=== PATIENT | male | born 1960 | race Caucasian/White ===

== ENCOUNTER 2022-04-15 15:37 | Emergency (ER) | payer BC, SELFPAY ==
[~2022-04-15] VITALS: Ht 177.8 cm; Wt 83.9 kg
[~2022-04-15 15:37] MED LIST: HYDR100T27 PO; LABE100T7 PO; LEVO5TAB29 PO; LOSA100T58 PO; PANT40TA55 PO; VERA240C3 PO
[2022-04-15 16:28] LABS: APPEARANCE,URINE CLEAR (CLEAR); BILIRUBIN,URINE NEGATIVE (NEGATIVE); COLOR,URINE LIGHT-YELLOW (YELLOW); GLUCOSE, URINE (UA) NEGATIVE (NEGATIVE); KETONES,URINE 5 mg/dL (NEGATIVE); LEUKOCYTE ESTERASE ,URINE NEGATIVE Leu/uL (NEGATIVE); NITRATE,URINE NEGATIVE (NEGATIVE); OCCULT BLOOD,URINE NEGATIVE (NEGATIVE); PH,URINE 6.5 (5.0-8.0); PROTEIN,URINE NEGATIVE (NEGATIVE); UROBILINOGEN,URINE 0.2 mg/dL (0.2-1.0)
[2022-04-15 16:48] LABS: BASOPHILS % (AUTO) 0.6 % (0.0-5.0); LYMPHOCYTES % (AUTO) 12.5 % (21.0-51.0); MEAN CORPUSCULAR HEMOGLOBIN 30.2 pg (27.0-33.0); MEAN CORPUSCULAR HGB CONC 34.3 g/dL (32.0-36.0); MEAN CORPUSCULAR VOLUME 88.3 fL (79-99); MONOCYTES % (AUTO) 10.7 % (3.0-13.0); NEUTROPHILS % (AUTO) 75.6 % (40.0-77.0); PLATELET COUNT (AUTO) 111 K/uL (130-400); RED BLOOD CELL COUNT(AUTO) 4.53 MIL/uL (4.50-6.20); RED CELL DISTRIBUTION WIDTH 12.9 % (11.0-15.5); WHITE BLOOD COUNT (AUTO) 5.4 K/uL (4.8-10.8)
[2022-04-15 17:01] LABS: CREATININE 1.4 mg/dL (0.5-1.5); POTASSIUM 3.2 mmol/L (3.5-5.1)
[2022-04-15 17:12] LABS: ALBUMIN 4.2 g/dL (3.5-5.0); TOTAL PROTEIN, SERUM 7.2 g/dL (6.0-8.3)
[2022-04-15 17:12] LABS: RBC,URINE 0-1 /HPF (0-1); WBC,URINE 0-1 /HPF (0-1)
[2022-04-15] MEDS ORDERED: IOHEXOL 350 MG/ML 100ML INFUS..BTL IV ONE (18:04)
[2022-04-15] MEDS ORDERED: TAMSULOSIN HCL 0.4 MG CAP.ER.24H PO STA (18:38)
[2022-04-15] MEDS ORDERED: KETO10TA2 PO (18:51)
[2022-04-15] MEDS ORDERED: TAMS-1 PO (18:51)
[2022-04-15] MEDS ORDERED: KETOROLAC 30MG VIAL (30MG/ML) IVP ONE (19:00)
[2022-04-15] MEDS ORDERED: 0.9%NACL 1000ML 1,000 ML IV ONE (19:00)
[2022-04-15 19:21] VITALS: BP 161/72
== END 2022-04-15 19:43 | disposition home or self-care (01) ==
LOC: EDH 15:37
DX: N20.1 Calculus of ureter (principal); K59.00 Constipation, unspecified; E11.9 Type 2 diabetes mellitus without complications; K21.9 Gastro-esophageal reflux disease without esophagitis; I10 Essential (primary) hypertension; Z88.5 Allergy status to narcotic agent
CPT/HCPCS: 99284; 74177; 96374; 80053; 85025; 81001; 36415; J7030; J1885; Q9967

== ENCOUNTER 2024-02-22 12:56 | Emergency (ER) | payer BC ==
[~2024-02-22] VITALS: Ht 177.8 cm; Wt 83.9 kg
[~2024-02-22 12:56] MED LIST changes: +HYDR100T15 PO; -HYDR100T27 PO; +KETO10TA2 PO; -LOSA100T58 PO; +LOSA100T59 PO; +TAMS-1 PO
[2024-02-22 14:02] LABS: BASOPHILS # (AUTO) 0.04 K/uL (0.00-0.20); BASOPHILS % (AUTO) 1.2 % (0.0-5.0); EOSINOPHILS # (AUTO) 0.07 K/uL (0.00-0.70); HEMATOCRIT 39.8 % (42-54); IMMATURE GRANULOCYTE ABSOLUTE 0.02 K/uL (0-1); LYMPHOCYTES # (AUTO) 0.9 K/uL (1.0-4.8); LYMPHOCYTES % (AUTO) 24.7 % (21.0-51.0); MEAN CORPUSCULAR HEMOGLOBIN 30.6 pg (27.0-33.0); MEAN CORPUSCULAR HGB CONC 33.7 g/dL (32.0-36.0); MEAN CORPUSCULAR VOLUME 90.9 fL (79-99); MONOCYTES # (AUTO) 0.4 K/uL (0.1-1.0); MONOCYTES % (AUTO) 10.5 % (3.0-13.0); NEUTROPHILS # (AUTO) 2.1 K/uL (1.8-7.7); PLATELET COUNT (AUTO) 111 K/uL (130-400); RED BLOOD CELL COUNT(AUTO) 4.38 MIL/uL (4.50-6.20); RED CELL DISTRIBUTION WIDTH 13.3 % (11.0-15.5); WHITE BLOOD COUNT (AUTO) 3.4 K/uL (4.8-10.8)
--- NOTE | 2024-02-22 14:03 | EKG ---
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
--- NOTE | 2024-02-22 14:06 | ERN ---
ED Note History of Present Illness Stated Complaint: RUQ ABDOMINAL PAIN Chief Complaint: Abdominal Pain Time Seen by MD: 13:16 Dictation: 63-year-old male presents to the ED for evaluation of worsening right upper quadrant abdominal pain onset 3 weeks ago. Patient reports back pain, but denies any fever, shortness a breath, chest pain, dysuria or any other associated symptoms at this time. Patient states he has been seen at urgent care twice these past couple of weeks and has been only given muscle relaxers. Patient states his pain feels as if someone poked me with a stick. Allergies: Coded Allergies: codeine (Unverified Allergy, Unknown, 11/04/18) dulaglutide (Unverified Allergy, Unknown, 04/15/22) valsartan (Unverified Allergy, Unknown, 11/05/18) Home Meds Active Scripts Cyclobenzaprine HCl (Cyclobenzaprine HCl) 5 Mg Tablet, 5 MG PO BID for 5 Days, #10 TAB Prov:YAS PINK MD 02/22/24 Tamsulosin HCl (Flomax) 0.4 Mg Cap.er.24h, 0.4 MG PO DAILY for 7 Days, #7 CAPSULE.DR Prov:MIRTA PICKENS MD 04/15/22 Ketorolac Tromethamine (Ketorolac Tromethamine) 10 Mg Tablet, 10 MG PO TID PRN for PAIN LEVEL 1 TO 5 for 5 Days, #15 TAB Prov:MIRTA PICKENS MD 04/15/22 Pantoprazole Sodium (Protonix) 40 Mg Ectab, 40 MG PO DAILYBKFST for 30 Days, #30 TAB.EC 1 Refill Prov:AFSANEH JULES 11/06/18 Reported Medications Hydralazine HCl (Hydralazine HCl) 100 Mg Tablet, 100 MG PO TIDMEALS, TAB 11/05/18 Verapamil HCl (Verapamil Sr) 240 Mg Cap24h.pel, 360 MG PO HS 11/05/18 Losartan Potassium (Losartan Potassium) 100 Mg Tablet, 100 MG PO HS, TAB 11/05/18 Labetalol HCl (Labetalol HCl) 100 Mg Tablet, 50 MG PO BID, TAB 11/05/18 Levocetirizine Dihydrochloride (Xyzal) 5 Mg Tablet, 5 MG PO AM, TAB 11/05/18 Past Medical History Past Medical History: Diabetes-Type II, Hypertension Surgical History: Other Surgical History Other: LEFT LEG Social History: Negative, Lives with family Review of System Dictation Constitutional: Negative for fever,chills, and weight loss Eyes: Negative for injury, pain,redness, and discharge ENT: Negative for injury,pain or swelling Cardiovascular: Negative for chest pain, palpitations, and edema Respiratory: Negative for shortness of breath, cough, and wheezing, Abdomen/GI: Positive for abdominal pain, negative for nausea, vomiting, diarrhea, and constipation Back: Positive for back pain : Negative for injury, bleeding and discharge MS/Extremity: Negative for injury and deformity Skin: Negative for rash, and discoloration Neuro: Negative for headache, weakness, numbness, tingling, and seizure Psych: Negative for suicide ideation, homicidal ideation, and hallucinations Initial Vital Sign VS Vital Signs Date Time Temp Pulse Resp B/P (MAP) Pulse Ox O2 Delivery O2 Flow Rate FiO2 02/22/24 13:59 97.2 66 20 169/89 97 Room Air 0 02/22/24 15:29 21 Physical Exam Dictation General: awake, alert, NAD Head/Face: Normocephalic, atraumatic Eyes: PERRL, EOMI, vision at baseline ENT: oral cavity clear, TMs clear, no signs of infection Neck: Trachea midline, supple, no nuchal rigidity Cardiovascular: RRR, normal S1/S2, No MRGs, no JVD Respiratory: CTAB, no respiratory distress, No rales or wheezes Abdomen: Soft, non-tender, non-distended, normal bowel sounds, no guarding or rebound. Skin: Warm, dry, normal turgor, no rash MS/Extremity: Pulses equal, no cyanosis, neurovascular intact, FROM Neuro: COAx4, GCS 15, strength 5/5, CN 2-12 intact, normal cerebellar exam, normal gait, Psych: Normal behavior, mood, and affect normal Results (Laboratory/Radiology) Laboratory/Radiology Laboratory Tests Test 02/22/24 13:53 White Blood Count 3.4 K/uL (4.8-10.8) L Red Blood Count 4.38 MIL/uL (4.50-6.20) L Hemoglobin 13.4 g/dL (14.0-18.0) L Hematocrit 39.8 % (42-54) L Mean Corpuscular Volume 90.9 fL (79-99) Mean Corpuscular Hemoglobin 30.6 pg (27.0-33.0) Mean Corpuscular Hemoglobin Concent 33.7 g/dL (32.0-36.0) Red Cell Distribution Width 13.3 % (11.0-15.5) Platelet Count 111 K/uL (130-400) L Mean Platelet Volume 12.3 fL (7.5-10.5) H Immature Granulocyte % (Auto) 0.6 % (0-1) Neutrophils (%) (Auto) 61.0 % (40.0-77.0) Lymphocytes (%) (Auto) 24.7 % (21.0-51.0) Monocytes (%) (Auto) 10.5 % (3.0-13.0) Eosinophils (%) (Auto) 2.0 % (0.0-8.0) Basophils (%) (Auto) 1.2 % (0.0-5.0) Neutrophils # (Auto) 2.1 K/uL (1.8-7.7) Lymphocytes # (Auto) 0.9 K/uL (1.0-4.8) L Monocytes # (Auto) 0.4 K/uL (0.1-1.0) Eosinophils # (Auto) 0.07 K/uL (0.00-0.70) Basophils # (Auto) 0.04 K/uL (0.00-0.20) Absolute Immature Granulocyte (auto 0.02 K/uL (0-1) Nucleated Red Blood Cells 0.0 % (0.0-0.19) Urine Color COLORLESS (YELLOW) Urine Appearance CLEAR (CLEAR) Urine pH 6.5 (5.0-8.0) Urine Specific [place] 1.006 (1.001-1.031) Urine Protein NEGATIVE mg/dL (NEGATIVE) Urine Glucose (UA) NEGATIVE mg/dL (NEGATIVE) Urine Ketones NEGATIVE mg/dL (NEGATIVE) Urine Occult Blood NEGATIVE (NEGATIVE) Urine Nitrate NEGATIVE (NEGATIVE) Urine Bilirubin NEGATIVE mg/dL (NEGATIVE) Urine Urobilinogen 0.2 mg/dL (0.2-1.0) Urine Leukocyte Esterase NEGATIVE Isaac/uL Sodium Level 143 mmol/L (136-145) Potassium Level 3.8 mmol/L (3.5-5.1) Chloride Level 105 mmol/L (101-111) Carbon Dioxide Level 31 mmol/L (21-32) Blood Urea Nitrogen 17 mg/dL (7-18) Creatinine 1.0 mg/dL (0.5-1.3) Glomerular Filtration Rate Calc 85 mL/min (>90) Random Glucose 144 mg/dL (70-105) H Total Calcium 9.3 mg/dL (8.5-10.1) Total Bilirubin 0.8 mg/dL (0.2-1.0) Direct Bilirubin 0.1 mg/dL (0.0-0.3) Aspartate Amino Transf (AST/SGOT) 17 U/L (10-37) Alanine Aminotransferase (ALT/SGPT) 24 U/L (12-78) Alkaline Phosphatase 71 U/L (50-136) Troponin I High Sensitivity 13 ng/L (4-75) Total Protein 7.0 g/dL (6.0-8.3) Albumin 4.4 g/dL (3.5-5.0) Lipase 28 U/L (16-77) Labs Reviewed?: Yes EKG Comment: EKG 02/22/2024 time 1:57 p.m. ventricular rate 58, VT 161, QRS D 94, QT 432. Sinus rhythm, nonspecific T abnormalities, lateral leads. No STEMI Ultrasound Comment: REASON: RUQ pain ORDERING PHYSICIAN: YAS PINK MD PROCEDURE: ABDRUQLTD - US ABDOMINAL RUQ\LTD US ABDOMINAL RUQ\E\LTD HISTORY: Pain COMPARISON: None TECHNIQUE: Right upper quadrant abdominal ultrasound study was performed. FINDINGS: Liver measures 14.8 cm. The visualized portion of the pancreas is within normal limits. Liver measures 14.8 cm. No gallstone is seen. Common duct measures 3 mm. No evidence of gallbladder wall thickening is seen. Right kidney measures 11.3 x 5.8 x 5.4 cm. No hydronephrosis is seen of the right kidney. The study is limited due to overlying bowel gas. IMPRESSION: 1. No gallstones or ductal dilatation is seen. 2. No hydronephrosis is seen. DICTATED BY: KAELYN BURKETT MD DATE: 02/22/[address] Scan Comment: REASON: abdominal pain ORDERING PHYSICIAN: YAS PINK MD PROCEDURE: ABD PELVWO - CT ABD/PEL WO CON RENAL/APPY CT ABD/PEL WO CON RENAL/APPY HISTORY: Bilateral flank pain COMPARISON: 04/15/2022 TECHNIQUE: Multiple sequential axial images of the abdomen and pelvis were obtained from the dome of the diaphragm through symphysis pubis. Patient was not given contrast through intravenous route. Oral contrast was not given. FINDINGS: No pleural effusion is seen bilaterally. There is no evidence of parenchymal disease or pulmonary nodule of the visualized lower lungs. Degenerative changes of the thoracolumbar spine are present. The heart is not enlarged. The liver, spleen, adrenal glands and pancreas are unremarkable. There is no evidence of hydronephrosis bilaterally. No evidence of renal stone is seen. If there is clinical suspicion for pyelonephritis, urinalysis correlation may be helpful. Fecal material is seen in the colon. There are normal size retroperitoneal and mesenteric lymph nodes. No ascites is seen. Appendix is not well seen limiting evaluation. Pelvic sidewalls are symmetric bilaterally. Bladder is well distended without wall thickening. IMPRESSION: 1. Fecal material in the colon. No ascites. CT was performed with one or more following dose reduction techniques: automated exposure control, adjustment of the mA and kv according to patient's size, or use of a iterative reconstruction technique. DICTATED BY: KAELYN BURKETT MD DATE: 02/22/24 1355 ED Course ED Course Orders Procedure Category Date Status Time Vital Signs Per CPOE 02/22/24 Transmitted Routine 13:02 Saline Lock Iv CPOE 02/22/24 Transmitted 13:02 Cbc With Differential LAB 02/22/24 Complete 13:02 Lipase LAB 02/22/24 Complete 13:02 Urinalysis Profile LAB 02/22/24 Complete 13:02 Basic Metabolic Panel LAB 02/22/24 Complete 13:02 12 Lead Ekg Tracing- EKG 02/22/24 Resulted Technical 13:18 Troponin I High LAB 02/22/24 Complete Sensitivity 13:19 Ct Abd/Pel Wo Con CT 02/22/24 Resulted Renal/Appy 13:19 Us Abdominal Ruq\Ltd US 02/22/24 Resulted 13:57 Hepatic Function Panel LAB 02/22/24 Complete 13:02 Vital Signs Date Time Temp Pulse Resp B/P (MAP) Pulse Ox O2 Delivery O2 Flow Rate FiO2 02/22/24 15:29 98.1 66 18 160/81 96 Room Air* 0 21 02/22/24 13:59 97.2 66 20 169/89 97 Room Air 0 Medical Decision Making MDM MDM: Differential diagnosis: Abdominal pain, flank pain, cholelithiasis Previous outside records reviewed: Old ER visits. Need for hospitalization: Patient does not meet criteria for hospitalization. Need for emergency major/minor surgery: No Patient's prior external medical records from other ER visits were reviewed by me as indicated. Prior testing and results from previous visits were reviewed. Prior tests were taken into account with medical decision making and resource utilization, independent historian/historians were used to obtain complete medical history. I independently interpreted the test that were performed, results were reviewed by me and considered findings on radiology if ordered. Medical management and examination interpretation discussions were had by me with other qualified healthcare professionals as indicated for the patient's care. DX & DISP Disposition: Discharge Departure Impression: Primary Impression: Right flank pain Condition: Stable Scripts Cyclobenzaprine HCl (Cyclobenzaprine HCl) 5 Mg Tablet 5 MG PO BID for 5 Days, #10 TAB Prov: YAS PINK MD 02/22/24 Referrals: TOMMY VEGAS (PCP) I have reviewed, & agreed with my scribe's, documentation. (Entered by Emi Chi, acting as a scribe for Dr. Pink) I personally scribed for YAS PINK MD (DRGUADC) on 02/22/24 at 14:51. Electronically submitted by Emi Chi ([employer]). I personally scribed for YAS PINK MD (DRGUADC) on 02/22/24 at 15:33. Electronically submitted by Emi Chi ([employer]). I personally scribed for YAS PINK MD (DRGUADC) on 02/22/24 at 15:34. Electronically submitted by Emi Chi ([employer]). YAS PINK MD Feb 22, 2024 14:06
[2024-02-22 14:14] LABS: POTASSIUM 3.8 mmol/L (3.5-5.1)
--- NOTE | 2024-02-22 14:14 | HMCIMG ---
CT ABD/PEL WO CON RENAL/APPY HISTORY: Bilateral flank pain COMPARISON: 04/15/2022 TECHNIQUE: Multiple sequential axial images of the abdomen and pelvis were obtained from the dome of the diaphragm through symphysis pubis. Patient was not given contrast through intravenous route. Oral contrast was not given. FINDINGS: No pleural effusion is seen bilaterally. There is no evidence of parenchymal disease or pulmonary nodule of the visualized lower lungs. Degenerative changes of the thoracolumbar spine are present. The heart is not enlarged. The liver, spleen, adrenal glands and pancreas are unremarkable. There is no evidence of hydronephrosis bilaterally. No evidence of renal stone is seen. If there is clinical suspicion for pyelonephritis, urinalysis correlation may be helpful. Fecal material is seen in the colon. There are normal size retroperitoneal and mesenteric lymph nodes. No ascites is seen. Appendix is not well seen limiting evaluation. Pelvic sidewalls are symmetric bilaterally. Bladder is well distended without wall thickening. IMPRESSION: 1. Fecal material in the colon. No ascites. CT was performed with one or more following dose reduction techniques: automated exposure control, adjustment of the mA and kv according to patient's size, or use of a iterative reconstruction technique.
[2024-02-22 14:17] LABS: APPEARANCE,URINE CLEAR (CLEAR); BILIRUBIN,URINE NEGATIVE (NEGATIVE); COLOR,URINE COLORLESS (YELLOW); GLUCOSE, URINE (UA) NEGATIVE (NEGATIVE); KETONES,URINE NEGATIVE (NEGATIVE); LEUKOCYTE ESTERASE ,URINE NEGATIVE Leu/uL (NEGATIVE); NITRATE,URINE NEGATIVE (NEGATIVE); OCCULT BLOOD,URINE NEGATIVE (NEGATIVE); PH,URINE 6.5 (5.0-8.0); PROTEIN,URINE NEGATIVE (NEGATIVE); UROBILINOGEN,URINE 0.2 mg/dL (0.2-1.0)
[2024-02-22 14:21] LABS: ADD UA MICROSCOPIC NO
[2024-02-22 14:22] LABS: ALBUMIN 4.4 g/dL (3.5-5.0); BILIRUBIN,DIRECT 0.1 mg/dL (0.0-0.3); BILIRUBIN,TOTAL 0.8 mg/dL (0.2-1.0)
--- NOTE | 2024-02-22 14:38 | HMCIMG ---
US ABDOMINAL RUQ\E\LTD HISTORY: Pain COMPARISON: None TECHNIQUE: Right upper quadrant abdominal ultrasound study was performed. FINDINGS: Liver measures 14.8 cm. The visualized portion of the pancreas is within normal limits. Liver measures 14.8 cm. No gallstone is seen. Common duct measures 3 mm. No evidence of gallbladder wall thickening is seen. Right kidney measures 11.3 x 5.8 x 5.4 cm. No hydronephrosis is seen of the right kidney. The study is limited due to overlying bowel gas. IMPRESSION: 1. No gallstones or ductal dilatation is seen. 2. No hydronephrosis is seen.
[2024-02-22] MEDS ORDERED: CYCL5TAB3 PO (15:18)
[2024-02-22 15:29] VITALS: BP 160/81; PULSE 66; RESP 18; TEMP 98.1; O2SAT 96
== END 2024-02-22 15:50 | disposition home or self-care (01) ==
LOC: EDH 12:56
DX: R10.11 Right upper quadrant pain (principal); E11.9 Type 2 diabetes mellitus without complications; I10 Essential (primary) hypertension; Z88.5 Allergy status to narcotic agent
CPT/HCPCS: 36415; 74176; 76705; 80048; 80076; 81003; 83690; 84484; 85025; 93005; 99285